=== PATIENT | female | born 1935 | race Caucasian/White ===

== ENCOUNTER 2020-10-18 16:04 | Emergency (ER) | payer MEDICARE, MEDICAID ==
[~2020-10-18] VITALS: Ht 157.5 cm; Wt 71.8 kg
[2020-10-18] MEDS ORDERED: AMIO200T68 PO (16:43)
[2020-10-18] MEDS ORDERED: FURO40 PO (16:43)
[2020-10-18] MEDS ORDERED: ASPI-1444 PO (16:43)
[2020-10-18] MEDS ORDERED: INSU100V39 SQ (16:43)
[2020-10-18] MEDS ORDERED: LORA-999 PO (16:43)
[2020-10-18] MEDS ORDERED: INSLAN SQ (16:43)
[2020-10-18] MEDS ORDERED: APIX5TAB PO (16:43)
[2020-10-18] MEDS ORDERED: ATOR40TA28 PO (16:43)
[2020-10-18] MEDS ORDERED: GABA-1216 PO (16:43)
[2020-10-18] MEDS ORDERED: LISI-894 PO (16:44)
[2020-10-18] MEDS ORDERED: CHOL100044 PO (16:44)
[2020-10-18] MEDS ORDERED: METO-558 PO (16:44)
[2020-10-18] MEDS ORDERED: MULT-248 PO (16:44)
[2020-10-18] MEDS ORDERED: ACET-2247 PO (16:44)
[2020-10-18] MEDS ORDERED: ASCO500 PO (16:44)
[2020-10-18] MEDS ORDERED: ZINC220C14 PO (16:44)
[2020-10-18 17:47] LABS: BASOPHILS % (AUTO) 0.3 % (0.0-2.0); EOSINOPHILS % (AUTO) 1.1 % (1.0-6.0); HEMATOCRIT 28.4 % (36-46); HEMOGLOBIN 9.3 g/dL (12.0-16.0); LYMPHOCYTES # (AUTO) 1.4 K/uL (1.0-4.8); LYMPHOCYTES % (AUTO) 28.4 % (22.0-44.0); MEAN CORPUSCULAR HEMOGLOBIN 31.4 pg (26.0-34.0); MEAN CORPUSCULAR HGB CONC 32.8 G/dL (31.0-37.0); MEAN CORPUSCULAR VOLUME 96 fL (80-100); MONOCYTES # (AUTO) 0.6 K/uL (0.1-1.0); MONOCYTES % (AUTO) 11.3 % (2.0-9.0); NEUTROPHILS # (AUTO) 2.9 K/uL (1.8-7.7); NEUTROPHILS % (AUTO) 58.9 % (40.0-70.0); PLATELET COUNT (AUTO) 295 K/uL (150-450); RED BLOOD CELL COUNT(AUTO) 2.96 MIL/uL (4.00-5.20); RED CELL DISTRIBUTION WIDTH 16.8 % (11.5-14.5)
[2020-10-18 18:01] LABS: CREATININE 1.04 mg/dL (0.60-1.30); POTASSIUM 3.9 mmol/L (3.5-5.1)
[2020-10-18 18:04] LABS: ALBUMIN 3.4 g/dL (3.4-5.0); BILIRUBIN,TOTAL 0.2 mg/dL (0.1-1.0); C-REACTIVE PROTEIN QUANT 0.17 mg/dL (0.00-0.30); TOTAL PROTEIN, SERUM 6.8 g/dL (6.4-8.2)
[2020-10-18 19:05] LABS: ERYTHROCYTE SEDIMENTATION RATE 25 MM/HR (0-20)
[2020-10-18 19:24] LABS: COVID AG,FIA SOURCE NASOPHARYNGEAL
[2020-10-18 20:33] LABS: GLUCOSE,POINT OF CARE 87 MG/DL (70-110)
[2020-10-18] MEDS ORDERED: VANCOMYCIN HCL 1 GM/D5% WATER 200 ML IV ONE (21:45)
[2020-10-18 22:45] VITALS: BP 153/70
== END 2020-10-18 23:30 | disposition designated cancer center or children's hospital (05) ==
LOC: EMS 16:04
DX: E11.622 Type 2 diabetes mellitus with other skin ulcer (principal); L97.829 Non-pressure chronic ulcer of other part of left lower leg with unspecified severity; I73.9 Peripheral vascular disease, unspecified; Z20.822 Contact with and (suspected) exposure to COVID-19
CPT/HCPCS: 36415; 73590; 80053; 82962; 85025; 85651; 86140; 87040; 87426; 96365; 96366; 99285; J3370